=== PATIENT | male | born 1965 | race Caucasian/White ===

== ENCOUNTER → 2022-03-30 | Outpatient (CLI) | payer BC ==
[~2022-03-30] VITALS: Ht 188 cm; Wt 111.1 kg
== END ==
LOC: EROP 12:49
DX: U07.1 COVID-19 (principal); Z23 Encounter for immunization
CPT/HCPCS: M0222; Q0222

== ENCOUNTER → 2022-03-30 | Outpatient (CLI) | payer BC | LOC: LAB 09:45 | DX: U07.1 COVID-19 (principal) | CPT/HCPCS: U0002 ==